=== PATIENT | male | born 1965 | race Caucasian/White ===

== ENCOUNTER 2020-05-21 09:50 | Emergency (ER) | payer BC, OTHER ==
[~2020-05-21] VITALS: Ht 180.3 cm; Wt 99.7 kg
--- NOTE | 2020-05-21 10:10 | NUR ---
Pt presents to ER calling prior with concern for mutiple sx of possible COVID concern. c/o lightheaded, sore throat, increased phglem production, chest tightness, diarrhea, decreased appetite r/t frequent diarrhea, and very fatiged for 4 days. Pt is diabetic. Pt has traveled in last 3 weeks to [place], [place], and motorcycle [employer] in [place]. Pt states he had 3 weeks ago went down into [place] not realizing of the COVID hotspot it is recognized for. Pt reports has went into [place] 2 weeks ago and around many other ppl. Pt states approximately 2 weeks ago he was in [place] with a [employer] gathering. Pt voices a major concern his exposures for possible COVID and his sx may be on the list and he has a 68 y/o with health concerns. Pt developed diarrhea about 4-5 days ago and has decreased appetite but has not been re-hydrating self as it attributes to making more diarrhea. Pt is feeling lightheaded today. For approx 3 days the patient feels chest tightness without any emergent feeling of thinking it was heart. "I am making alot more production of phlegm lately and alittle sore throat." Dr Villegas has entered at this time to complete his history and assessment and pt enters conversation with a different tone of voice stating, "If you do not intend on screening me for COVID, I will get right up and leave right now and go to a different hospital." "I am very concerned for my , whom is 68."
--- OUTSIDE RECORDS SUMMARY | 2020-05-21 10:19 | XMS REPORT | Continuity of Care Document ---
Author Organization Unknown Address Unknown Phone Unavailable Allergies There is no data. Medications There is no data. Problems There is no data. Procedures There is no data. Results There is no data. Encounters ACCT No. Visit Date/Time Discharge Status Pt. Type Provider Facility Loc./Unit Complaint [id number] 02/14/2019 18:00:00 02/14/2019 23:59: [facility] [id number] 05/21/2020 09:52:[address] Emergency [facility] ER FS SOB; CHEST CONGESTION; HEATHER COLEY
[2020-05-21] MEDS ORDERED: NS IV 1000 ML 1,000 ML ONE (10:22)
--- NOTE | 2020-05-21 10:24 | ED General ---
General Stated Complaint: SOB; CHEST CONGESTION; LETHARGY Source of Information: Patient Exam Limitations: No Limitations History of Present Illness Date Seen by Provider: May 21, 2020 Time Seen by Provider: 10:24 Initial Comments 54-year-old male presents with some chest tightness, congestion, fatigue. Patient reports he started feeling rough couple days ago. Has episode of diarrhea. Has some mild chest tightness and mild shortness of breath. Patient is complaining of some extreme fatigue. Patient states he is concerned that he may have COVID. Patient with no chest pain. No reports of fevers or chills. Allergies and Home Medications Allergies Coded Allergies: No Known Drug Allergies (Unverified , 05/21/20) Patient Home Medication List Home Medication List Reviewed: Yes Review of Systems Review of Systems Constitutional: No chills; dizziness; No fever; malaise EENTM: no symptoms reported; No throat pain Respiratory: No cough; short of breath, other (chest tightness) Cardiovascular: see HPI; No chest pain Gastrointestinal: diarrhea Genitourinary: no symptoms reported Musculoskeletal: no symptoms reported Skin: no symptoms reported Past Aulmwcm-Cbgmux-Vjquis Hx Past Med/Social Hx: Reviewed Nursing Past Med/Soc Hx Patient Social History Recent Foreign Travel: No Contact w/Someone Who Travel: No Physical Exam Vital Signs Vital Signs - First Documented 05/21/20 10:10 Temp 35.4 Pulse 87 Resp 20 B/P (MAP) 151/86 (107) O2 Delivery Room Air Capillary Refill : Height, Weight, BMI Height: '" Weight: lbs. oz. 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 Norm as Tested Skin: Normal Color, Warm/Dry Focused Exam Lactate Level 05/21/20 10:35: Lactic Acid Level 2.08*H Lactic Acid Level Laboratory Tests Test 05/21/20 10:35 Lactic Acid Level 2.08 MMOL/L (0.50-2.00) *H Progress/Results/Core Measures Suspected Sepsis SIRS Temperature: Pulse: Respiratory Rate: Laboratory Tests 05/21/20 10:35: White Blood Count 4.5 Blood Pressure / Mean: 05/21/20 10:35: Lactic Acid Level 2.08*H Laboratory Tests 05/21/20 10:35: Creatinine 0.84, INR Comment 1.0, Platelet Count 282, Total Bilirubin 0.8 Results/Orders Lab Results Laboratory Tests Test 05/21/20 10:35 05/21/20 10:45 Range/Units White Blood Count 4.5 4.3-11.0 10^3/uL Red Blood Count 5.16 4.35-5.85 10^6/uL Hemoglobin 15.6 13.3-17.7 G/DL Hematocrit 44 40-54 % Mean Corpuscular Volume 86 80-99 FL Mean Corpuscular Hemoglobin 30 25-34 PG Mean Corpuscular Hemoglobin Concent 35 32-36 G/DL Red Cell Distribution Width 12.1 10.0-14.5 % Platelet Count 282 130-400 10^3/uL Mean Platelet Volume 10.1 7.4-10.4 FL Neutrophils (%) (Auto) 47 42-75 % Lymphocytes (%) (Auto) 40 12-44 % Monocytes (%) (Auto) 9 0-12 % Eosinophils (%) (Auto) 2 0-10 % Basophils (%) (Auto) 3 0-10 % Neutrophils # (Auto) 2.1 1.8-7.8 X 10^3 Lymphocytes # (Auto) 1.8 1.0-4.0 X 10^3 Monocytes # (Auto) 0.4 0.0-1.0 X 10^3 Eosinophils # (Auto) 0.1 0.0-0.3 10^3/uL Basophils # (Auto) 0.1 0.0-0.1 10^3/uL Prothrombin Time 13.1 12.2-14.7 SEC INR Comment 1.0 0.8-1.4 Activated Partial Thromboplast Time 24 24-35 SEC Sodium Level 137 135-145 MMOL/L Potassium Level 4.1 3.6-5.0 MMOL/L Chloride Level 97 L 98-107 MMOL/L Carbon Dioxide Level 26 21-32 MMOL/L Anion Gap 14 5-14 MMOL/L Blood Urea Nitrogen 12 7-18 MG/DL Creatinine 0.84 0.60-1.30 MG/DL Estimat Glomerular Filtration Rate > 60 BUN/Creatinine Ratio 14 Glucose Level 267 H 70-105 MG/DL Lactic Acid Level 2.08 *H 0.50-2.00 MMOL/L Calcium Level 9.2 8.5-10.1 MG/DL Corrected Calcium 8.9 8.5-10.1 MG/DL Total Bilirubin 0.8 0.1-1.0 MG/DL Aspartate Amino Transf (AST/SGOT) 17 5-34 U/L Alanine Aminotransferase (ALT/SGPT) 33 0-55 U/L Alkaline Phosphatase 41 40-136 U/L Troponin I < 0.30 <0.30 NG/ML C-Reactive Protein 0.23 <0.50 MG/DL Total Protein 6.8 6.4-8.2 GM/DL Albumin 4.4 3.2-4.5 GM/DL My Orders Orders - BUCK,JESUS L DO Ns Iv 1000 Ml (Sodium Chloride 0.9%) (05/21/20 10:22) Vital Signs: Every 4 Hours (Or (05/21/20 10:24) Monitor-Rhythm Ecg Trace Only (05/21/20 10:24) Cbc With Automated Diff (05/21/20 10:24) Comprehensive Metabolic Panel (05/21/20 10:24) Ferritin (05/21/20 10:24) LDH (05/21/20 10:24) Hs C Reactive Protein (05/21/20 10:24) Crp Fs (05/21/20 10:24) Troponin I Fs (05/21/20 10:24) Lactic Acid Analyzer (05/21/20 10:24) Protime With Inr (05/21/20 10:24) Partial Thromboplastin Time (05/21/20 10:24) Fibrinogen (05/21/20 10:24) Ekg Tracing (05/21/20 10:24) Chest 1 View Ap/Pa Only (05/21/20 10:24) Coronavirus Sars-Cov-2 So 2018 (05/21/20 10:30) Ed Iv/Invasive Line Start (05/21/20 10:42) Ns Iv 1000 Ml (Sodium Chloride 0.9%) (05/21/20 10:42) Vital Signs/I&O 05/21/20 10:10 Temp 35.4 Pulse 87 Resp 20 B/P (MAP) 151/86 (107) O2 Delivery Room Air Capillary Refill : Progress Note : Time: 10:44 Progress Note while discussing evaluation plan with patient and explained to him all the tests and treatments we would be providing, Patient became very angry and stated that if I wasn't going to a COVID test he was given a get up right now leave and go to another hospital. I informed patient that at no time did I state I was not going to a COVID test but that there are multiple other etiologies it can cause his symptoms and some much more urgent than just COVID testing. I discussed with patient that if he just wants a COVID test he is free to go somewhere else if he chooses, but i would be doing that in addition to other tests, that he wants to be evaluated for his symptoms and other possible causes, we will continue to evaluate him. 1134 Patient with mild elevated lactate likely related to patient may in the nurse's that he hasn't been drinking a lot because he is got some diarrhea. He's also been out in the heat and and traveling quite a bit on his motorcycle. Patient with negative laboratory evaluation outside of minimal lactate evaluation. Patient with no acute findings on physical exam. ECG Initial ECG Impression Date: May 21, 2020 Initial ECG Impression Time: 10:28 Initial ECG Rate: 79 Initial ECG Rhythm: Normal Sinus Initial ECG Impression: Normal Diagnostic Imaging Diagonstic Imaging: Xray Comments [facility] [place], [place] NAME: ALMAZ ANDINO [facility] REC#: [id number] PT STATUS: REG ER : 1965 PHYSICIAN: JESUS BUCK DO ADMIT DATE: 05/21/20/ER FS Draft Date of Exam:05/21/20 CHEST 1 VIEW AP/PA ONLY Indication: Shortness of breath and chest congestion. Time of Exam: 10:53 AM No prior studies are available for comparison. The heart size is normal. The pulmonary vascularity is unremarkable. The lungs are clear. No infiltrate, effusion or pneumothorax is detected. Impression: No acute cardiopulmonary process is detected. Reviewed: Reviewed by Me Departure Impression Primary Impression: Dehydration Disposition: 01 HOME, SELF-CARE Condition: Stable Departure-Patient Inst. Referrals: NO,LOCAL PHYSICIAN (PCP/Family) Primary Care Physician Patient Instructions: COVID19, Dehydration, Adult (DC), Heat Exhaustion and Heat Stroke (DC) Add. Discharge Instructions: Your symptoms and laboratory evaluation could be mild dehydration from decreased fluid intake and he exposure, viral illness or other etiology. Your screen for the appiah virus. It will take approximately 72 hours for these results to return. He will need to follow CBC isolation guidelines for the next 14 days or until you have a negative test. JESUS BUCK DO May 21, 2020 10:24
[2020-05-21] MEDS ORDERED: NS IV 1000 ML 1,000 ML IV SCH (10:42)
[2020-05-21 10:53] LABS: BASOPHILS # (AUTO) 0.1 10^3/uL (0.0-0.1); BASOPHILS % (AUTO) 3 % (0-10); EOSINOPHILS # (AUTO) 0.1 10^3/uL (0.0-0.3); EOSINOPHILS % (AUTO) 2 % (0-10); HEMATOCRIT 44 % (40-54); HEMOGLOBIN 15.6 G/DL (13.3-17.7); LYMPHOCYTES # (AUTO) 1.8 X 10^3 (1.0-4.0); LYMPHOCYTES % (AUTO) 40 % (12-44); MEAN CORPUSCULAR HEMOGLOBIN 30 PG (25-34); MEAN CORPUSCULAR HGB CONC 35 G/DL (32-36); MEAN CORPUSCULAR VOLUME 86 FL (80-99); MEAN PLATELET VOLUME 10.1 FL (7.4-10.4); MONOCYTES # (AUTO) 0.4 X 10^3 (0.0-1.0); MONOCYTES % (AUTO) 9 % (0-12); NEUTROPHILS # (AUTO) 2.1 X 10^3 (1.8-7.8); NEUTROPHILS % (AUTO) 47 % (42-75); PLATELET COUNT 282 10^3/uL (130-400); RED CELL DISTRIBUTION WIDTH 12.1 % (10.0-14.5); WHITE BLOOD COUNT 4.5 10^3/uL (4.3-11.0)
--- NOTE | 2020-05-21 11:03 | Diagnostic Imaging Report ---
Indication: Shortness of breath and chest congestion. Time of Exam: 10:53 AM No prior studies are available for comparison. The heart size is normal. The pulmonary vascularity is unremarkable. The lungs are clear. No infiltrate, effusion or pneumothorax is detected. Impression: No acute cardiopulmonary process is detected. Dictated by: Dictated on workstation # [id number]
[2020-05-21 11:07] LABS: PROTHROMBIN TIME PATIENT 13.1 SEC (12.2-14.7)
--- NOTE | 2020-05-21 11:10 | NUR ---
IV fluid bolus is infused, results remain pending. Not all lab tests have resulted, pending PCXR. Pt aware of COVID is a send out.
[2020-05-21 11:15] LABS: ALANINE AMINOTRANSFERASE 33 U/L (0-55); ALKALINE PHOSPHATASE 41 U/L (40-136); BILIRUBIN,TOTAL 0.8 MG/DL (0.1-1.0); BUN/CREATININE RATIO 14; CALCIUM 9.2 MG/DL (8.5-10.1); CARBON DIOXIDE 26 MMOL/L (21-32); CHLORIDE 97 MMOL/L (98-107); CREATININE SERUM 0.84 MG/DL (0.60-1.30); GFR ESTIMATED > 60; GLUCOSE 267 MG/DL (70-105); POTASSIUM 4.1 MMOL/L (3.6-5.0); SODIUM 137 MMOL/L (135-145); TOTAL PROTEIN 6.8 GM/DL (6.4-8.2)
[2020-05-21 11:16] LABS: ALBUMIN 4.4 GM/DL (3.2-4.5)
[2020-05-21 12:05] VITALS: BP 141/83
--- NOTE | 2020-05-21 12:05 | NUR ---
Pt discharged to home via decon room doors of ED 5 as PUI. Pt was reviewed the orders of quarantine per Dr Villegas regarding his concerns for travel and his variety of sx. Pt will remain quarantined @ home till being notified of test results in which a positive requires more direction of his orders under the Public Health Dept disclosure for his further instructions.
== END 2020-05-21 12:05 | disposition home or self-care (01) ==
LOC: ER FS 09:52
DX: E86.0 Dehydration (principal); Z20.828 Contact with and (suspected) exposure to other viral communicable diseases
CPT/HCPCS: 36415; 71045; 80053; 82728; 83605; 83615; 84484; 85025; 85384; 85610; 85730; 86141; 93005; 93041; 99284; U0002; 87635

== ENCOUNTER 2021-12-10 10:59 | Emergency (ER) | payer BC ==
[~2021-12-10] VITALS: Ht 177.8 cm; Wt 99.3 kg
[2021-12-10] MEDS ORDERED: KETOROLAC 30 MG/ML VIAL IVP STA (11:14)
[2021-12-10] MEDS ORDERED: NS IV 1000 ML 1,000 ML IV STA (11:14)
--- NOTE | 2021-12-10 11:22 | ED Abdominal Pain ---
General Chief Complaint: Abdominal/GI Problems Stated Complaint: ABD PAIN Source of Information: Patient Exam Limitations: No Limitations History of Present Illness Date Seen by Provider: Dec 10, 2021 Time Seen by Provider: 11:03 Initial Comments 56-year-old male presenting with complaints of lower abdominal pain x4 days. Initially he felt like there was a "softball in my ass" when he tried to go to the bathroom. He was having decreased amounts of stool that he could get out. He was straining to pass any stool. He had seen some blood when he passed some stool last night. He had some increased cramping pain in the lower abdominal and suprapubic area after going to the bathroom. His pain has become more constant 6 out of 10 over the last 4 days. It is not made worse or better if he eats or drinks anything. He has not noticed any nausea or vomiting. He has worsened pain after trying to have a bowel movement or urinate. He does have a history of diabetes and high blood pressure as well as kidney stones and diverticulitis. He states that this feels different than his diverticulitis in the past. He has felt that he had a subjective fever yesterday but did not take his temperature. He denied any cough, congestion, chest pain, diarrhea, pain with urination, blood in his urine, trauma to his abdomen. He denies any history of abdominal surgeries. He has not tried taking any medications for the pain over the last 4 days. He does not routinely follow up with a clinic provider but will go to see a provider in [place] when he has to so that he can maintian medicines for his Diabetes. Timing/Duration: 4-5 Days Severity/Quality: Moderate, Cramping, Stabbing Location: RLQ, LLQ, Suprapubic Radiation: No Radiation Activities at Onset: None Modifying Factors: Worsens With Defecating (increased pain after he tries to defecate), Worsens With Movement, Worsens With Palpation Associated Symptoms: No Back Pain, No Chest Pain, No Diaphoresis; Fever/Chills (subjective fever yesterday as he felt "really hot" but did not actually take his temperature); No Fatigue, No Headache, No Heartburn, No Nausea/Vomiting, No Rash, No Shortness of Air, No Swelling/Mass in Abdomen, No Syncope, No Weakness Allergies and Home Medications Allergies Coded Allergies: No Known Drug Allergies (Unverified , 05/21/20) Patient Home Medication List Home Medication List Reviewed: Yes Ciprofloxacin HCl (Ciprofloxacin HCl) 500 Mg Tablet, 500 MG PO BID Prescribed by: FRANCIS THURMAN on 12/10/21 1321 Metronidazole (Metronidazole) 500 Mg Tablet, 500 MG PO TID Prescribed by: FRANCIS THURMAN on 12/10/21 1321 Oxycodone HCl/Acetaminophen (Oxycodone-Acetaminophen 5-325) 1 Each Tablet, 1 EACH PO Q4H PRN for PAIN-SEVERE (8-10) Prescribed by: FRANCIS THURMAN on 12/10/21 1322 Review of Systems Review of Systems Constitutional: No chills, No diaphoresis; fever (subjective yesterday) EENTM: No Symptoms Reported Respiratory: No Symptoms Reported Cardiovascular: No Symptoms Reported Gastrointestinal: See HPI Genitourinary: See HPI Musculoskeletal: no symptoms reported Skin: No rash Psychiatric/Neurological: Denies Headache Endocrine: Denies Increased Thrist, Denies Increased Urine Hematologic/Lymphatic: Denies Blood Clots Past Aomrtoh-Ifmxhi-Ggnijd Hx Patient Social History Tobacco Use?: No Seasonal Allergies Seasonal Allergies: No Past Medical History Surgery/Hospitalization HX: Diabetes Mellitus Non-Insulin Controlled, Htn, High Cholesterol, Kidney stones, Diverticulitis Surgeries: Yes (Colonoscopy, arthroscopy bilat shoulders, left knee) Respiratory: No Cardiac: Yes (states on HTN med for kidney protection) High Cholesterol, Hypertension Neurological: No Genitourinary: Yes Kidney Stones Gastrointestinal: Yes Diverticulosis (hx of prior diverticulitis) Musculoskeletal: No Endocrine: Yes Diabetes, Non-Insulin dep HEENT: No Cancer: No Psychosocial: Yes Anxiety, Depression Integumentary: No Blood Disorders: No Physical Exam Vital Signs Vital Signs - First Documented 12/10/21 11:05 Temp 36.1 Pulse 96 Resp 16 B/P (MAP) 152/85 (107) Pulse Ox 98 O2 Delivery Room Air Capillary Refill : Height/Weight/BMI Height: '" Weight: lbs. oz. kg; 30.00 BMI Method: General Appearance: WD/WN, no apparent distress HEENT: PERRL/EOMI, pharynx normal Neck: non-tender, full range of motion, supple, normal inspection Respiratory: chest non-tender, lungs clear, normal breath sounds, no respiratory distress, no accessory muscle use Cardiovascular: normal peripheral pulses, regular rate, rhythm Gastrointestinal: normal bowel sounds, soft, no pulsatile mass; No distended, No guarding, No rebound; tenderness (all across lower abdomen but worse in suprapubic area) Rectal: deferred Extremities: normal range of motion, non-tender, no calf tenderness, normal capillary refill Back: no CVA tenderness Neurologic/Psychiatric: hot box checker II-XII nml as tested, alert, oriented x 3 Skin: normal color, warm/dry Images 1 - Tender to palpation along lower abdomen, worse in suprapubic area Progress/Results/Core Measures Results/Orders Lab Results Laboratory Tests Test 12/10/21 11:10 Range/Units White Blood Count 10.8 4.3-11.0 10^3/uL Red Blood Count 5.14 4.30-5.52 10^6/uL Hemoglobin 15.8 13.3-17.7 g/dL Hematocrit 45 40-54 % Mean Corpuscular Volume 87 80-99 fL Mean Corpuscular Hemoglobin 31 25-34 pg Mean Corpuscular Hemoglobin Concent 35 32-36 g/dL Red Cell Distribution Width 12.3 10.0-14.5 % Platelet Count 309 130-400 10^3/uL Mean Platelet Volume 10.1 9.0-12.2 fL Immature Granulocyte % (Auto) 0 % Neutrophils (%) (Auto) 75 42-75 % Lymphocytes (%) (Auto) 14 12-44 % Monocytes (%) (Auto) 9 0-12 % Eosinophils (%) (Auto) 1 0-10 % Basophils (%) (Auto) 1 0-10 % Neutrophils # (Auto) 8.1 H 1.8-7.8 X 10^3 Lymphocytes # (Auto) 1.5 1.0-4.0 X 10^3 Monocytes # (Auto) 1.0 0.0-1.0 X 10^3 Eosinophils # (Auto) 0.1 0.0-0.3 10^3/uL Basophils # (Auto) 0.1 0.0-0.1 10^3/uL Immature Granulocyte # (Auto) 0.0 0.0-0.1 10^3/uL Prothrombin Time 13.2 12.2-14.7 SEC INR Comment 1.0 0.8-1.4 Activated Partial Thromboplast Time 24 24-35 SEC Sodium Level 138 135-145 MMOL/L Potassium Level 4.2 3.6-5.0 MMOL/L Chloride Level 100 98-107 MMOL/L Carbon Dioxide Level 27 21-32 MMOL/L Anion Gap 11 5-14 MMOL/L Blood Urea Nitrogen 12 7-18 MG/DL Creatinine 0.86 0.60-1.30 MG/DL Estimat Glomerular Filtration Rate 102 BUN/Creatinine Ratio 14 Glucose Level 250 H 70-105 MG/DL Calcium Level 9.2 8.5-10.1 MG/DL Corrected Calcium 8.8 8.5-10.1 MG/DL Total Bilirubin 1.0 0.1-1.0 MG/DL Aspartate Amino Transf (AST/SGOT) 10 5-34 U/L Alanine Aminotransferase (ALT/SGPT) 20 0-55 U/L Alkaline Phosphatase 48 40-136 U/L Total Protein 7.4 6.4-8.2 GM/DL Albumin 4.5 3.2-4.5 GM/DL Lipase 21 8-78 U/L My Orders Orders - FRANCIS THURMAN MD Comprehensive Metabolic Panel (12/10/21 11:14) Lipase (12/10/21 11:14) Ed Iv/Invasive Line Start (12/10/21 11:14) Cbc With Automated Diff (12/10/21 11:14) Ct Abdomen/Pelvis W (12/10/21 11:14) Ns Iv 1000 Ml (Sodium Chloride 0.9%) (12/10/21 11:14) Ketorolac Injection (Toradol Injection) (12/10/21 11:14) Protime With Inr (12/10/21 11:14) Partial Thromboplastin Time (12/10/21 11:14) Iohexol Injection (Omnipaque 350 Mg/Ml 1 (12/10/21 12:00) Received Contrast (Hold Metformin- Contr (12/10/21 12:00) Sodium Chloride Flush (Catheter Flush Sy (12/10/21 12:00) Ns (Ivpb) (Sodium Chloride 0.9% Ivpb Bag (12/10/21 12:00) Metronidazole 500mg/100ml Ivpb (Flagyl 5 (12/10/21 13:05) Ciprofloxacin Tablet (Cipro Tablet) (12/10/21 13:05) Fentanyl Inj (Sublimaze Injection) (12/10/21 13:05) Ondansetron Injection (Zofran Injectio (12/10/21 13:05) Medications Given in ED Current Medications Medications Dose Ordered Sig/Sharon Route Start Time Stop Time Status Last Admin Dose Admin Iohexol 100 ml ONCE ONCE IV 12/10/21 12:00 12/10/21 12:01 DC 12/10/21 12:03 100 ML Sodium Chloride 10 ml NEEDED PRN IV 12/10/21 12:00 12/10/21 14:29 DC 12/10/21 12:03 10 ML Sodium Chloride 100 ml ONCE ONCE IV 12/10/21 12:00 12/10/21 12:01 DC 12/10/21 12:03 100 ML Vital Signs/I&O 12/10/21 12/10/21 11:05 14:25 Temp 36.1 Pulse 96 78 Resp 16 16 B/P (MAP) 152/85 (107) 114/69 Pulse Ox 98 97 O2 Delivery Room Air Room Air Progress Progress Note #1: Progress Note Check basic labs, UA, Coags since he reports blood in stool. CT scan of abdomen/pelvis to evaluate his abdominal pain. Give IV contrast to look for signs of inflammation. IVF for hydration with his HR in upper 90s. Toradol for pain. Keep NPO until have further testing back Differential diagnosis includes fecal impaction, diverticulitis, colitis, bowel mass, kidney stone, UTI, Progress Note #2: Progress Note Labs are stable without elevation of the white blood cell count. His chemistry does not show acute significant abnormality other than elevated glucose of 250. His pain was not improved with treatment here in the ED. His CT scan did demonstrate a lot of inflammation around the lower sigmoid and rectal colon consistent with diverticulitis and colitis. No perforation or free air and no abscess. Advised patient of these findings and since he was still having pain we will give a first dose of IV antibiotic here. Try a little stronger pain medication as well. Patient states that usually he needs double dose or better of any pain medications to have any effect for him. Counseled on follow up and return precautions. Advised he may want to discuss with his primary about having a repeat colonoscopy or sigmoidoscopy once he has healed and recovered from his acute flare up. Will give first dose of antibiotics here to help kick start treatment for his diverticulitis. Continue by mouth. Give Fentanyl 100 mcg IV to try and help with pain while waiting on antibiotic to infuse. Send Percocet for pain to pharmacy since he reports having to take stronger dose of pain meds than other people to help control his symptoms. Diagnostic Imaging Diagonstic Imaging: CT Plain Films/CT/US/NM/MRI: abdomen, pelvis Comments [facility]. [place], [place] NAME: ALMAZ ANDINO [facility] REC#: [id number] PT STATUS: REG ER : 1965 PHYSICIAN: FRANCIS THURMAN MD ADMIT DATE: 12/10/21/ER FS Signed Date of Exam:12/10/21 CT ABDOMEN/PELVIS W PROCEDURE: CT abdomen and pelvis with contrast. TECHNIQUE: Multiple contiguous axial images were obtained through the abdomen and pelvis after administration of intravenous contrast. Auto Exposure Controls were utilized during the CT exam to meet ALARA standards for radiation dose reduction. All CT scans use one or more of the following dose optimizing techniques: automated exposure control, MA and/or KvP adjustment based on patient size and exam type or iterative reconstruction. INDICATION: Low abdominal pain and intermittent constipation. Densely calcified nodule in the left lower lobe is compatible with granuloma. There is mild low-density throughout the liver indicating steatosis without evidence of focal hepatic or splenic abnormality. A small amount of high-density material is seen in the dependent portion of the gallbladder lumen indicating gallstones. No pancreatic or adrenal gland abnormality is identified. There is good enhancement of the kidneys with questionable minimal right renal cortical cyst. Otherwise, the kidneys are unremarkable without evidence of hydronephrosis and there is no evidence of obstructive uropathy. There is extensive mural thickening at the level of the sigmoid colon with several diverticula present. There is also pericolonic edema and inflammation which extends to the dome of the urinary bladder. Bladder is otherwise unremarkable. There is no evidence of appendiceal region inflammation or fluid collection. IMPRESSION: Findings are compatible with sigmoid colitis likely on the basis of diverticulitis with pericolonic inflammation. There is no evidence of drainable abscess or pneumoperitoneum. Other incidental findings include hepatic steatosis, cholecystolithiasis and left lower lobe calcified granuloma. Dictated by: Dictated on workstation # [id number] Dict: 12/10/21 1214 Trans: 12/10/21 1244 [facility] [id number] Interpreted by: MACEY PEREZ MD Electronically signed by: MACEY PEREZ MD 12/10/21 1244 Reviewed: Reviewed by Me Departure Impression Primary Impression: Diverticulitis of sigmoid colon Disposition: HOME, SELF-CARE Condition: Stable Departure-Patient Inst. Decision time for Depature: 13:22 Referrals: NO,LOCAL PHYSICIAN (PCP/Family) Primary Care Physician Patient Instructions: Abdominal Pain, Adult ED, Diverticulitis (DC) Add. Discharge Instructions: Take the full course of antibiotics to treat for infection and inflammation of your Sigmoid and lower colon. Follow a liquid or bland diet for next 24-48 hours to help with pain and infla mmation. Check with clinic if not improving as they may want to repeat a colonoscopy once you are healed from this episode. Return or seek medical care if you develop fever over 101 F, uncontrolled vomiting, worsening pain despite medicine. If these develop you may need IV antibiotics or admit to a hospital. All discharge instructions reviewed with patient and/or family. Voiced understanding. Scripts Oxycodone HCl/Acetaminophen (Oxycodone-Acetaminophen 5-325) 1 Each Tablet 1 EACH PO Q4H PRN for PAIN-SEVERE (8-10) MDD 6 for 3 Days, #18 TAB 0 Refills Prov: FRANCIS THURMAN MD 12/10/21 Metronidazole (Metronidazole) 500 Mg Tablet 500 MG PO TID for Diverticulitis for 10 Days, #30 TAB 0 Refills Prov: FRANCIS THURMAN MD 12/10/21 Ciprofloxacin HCl (Ciprofloxacin HCl) 500 Mg Tablet 500 MG PO BID for Diverticulitis for 10 Days, #20 TAB 0 Refills Prov: FRANCIS THURMAN MD 12/10/21 FRANCIS THURMAN MD Dec 10, 2021 11:22
[2021-12-10 11:31] LABS: BASOPHILS % (AUTO) 1 % (0-10); EOSINOPHILS % (AUTO) 1 % (0-10); HEMATOCRIT 45 % (40-54); HEMOGLOBIN 15.8 g/dL (13.3-17.7); LYMPHOCYTES % (AUTO) 14 % (12-44); MEAN CORPUSCULAR HEMOGLOBIN 31 pg (25-34); MEAN CORPUSCULAR HGB CONC 35 g/dL (32-36); MEAN CORPUSCULAR VOLUME 87 fL (80-99); MEAN PLATELET VOLUME 10.1 fL (9.0-12.2); MONOCYTES % (AUTO) 9 % (0-12); NEUTROPHILS % (AUTO) 75 % (42-75); PLATELET COUNT 309 10^3/uL (130-400); WHITE BLOOD COUNT 10.8 10^3/uL (4.3-11.0)
[2021-12-10 11:32] LABS: BASOPHILS # (AUTO) 0.1 10^3/uL (0.0-0.1); EOSINOPHILS # (AUTO) 0.1 10^3/uL (0.0-0.3); LYMPHOCYTES # (AUTO) 1.5 X 10^3 (1.0-4.0); NEUTROPHILS # (AUTO) 8.1 X 10^3 (1.8-7.8)
[2021-12-10 11:40] LABS: PROTHROMBIN TIME PATIENT 13.2 SEC (12.2-14.7)
[2021-12-10 11:48] LABS: CALCIUM 9.2 MG/DL (8.5-10.1); CREATININE SERUM 0.86 MG/DL (0.60-1.30); POTASSIUM 4.2 MMOL/L (3.6-5.0); TOTAL PROTEIN 7.4 GM/DL (6.4-8.2)
[2021-12-10 11:49] LABS: ALBUMIN 4.5 GM/DL (3.2-4.5)
[2021-12-10] MEDS ORDERED: CATHETER FLUSH 10 ML SYR IV PRN (12:00)
[2021-12-10] MEDS ORDERED: HOLD METFORMIN - RECEIVED CONTRAST 20 ML VIAL IV SCH (12:00)
[2021-12-10] MEDS ORDERED: IOHEXOL 350 MG/ML 100 ML (OMNIPAQUE 350) VIAL IV ONE (12:00)
[2021-12-10] MEDS ORDERED: NS 100 ML (IVPB) BAG IV ONE (12:00)
--- NOTE | 2021-12-10 12:22 | Diagnostic Imaging Report ---
PROCEDURE: CT abdomen and pelvis with contrast. TECHNIQUE: Multiple contiguous axial images were obtained through the abdomen and pelvis after administration of intravenous contrast. Auto Exposure Controls were utilized during the CT exam to meet ALARA standards for radiation dose reduction. All CT scans use one or more of the following dose optimizing techniques: automated exposure control, MA and/or KvP adjustment based on patient size and exam type or iterative reconstruction. INDICATION: Low abdominal pain and intermittent constipation. Densely calcified nodule in the left lower lobe is compatible with granuloma. There is mild low-density throughout the liver indicating steatosis without evidence of focal hepatic or splenic abnormality. A small amount of high-density material is seen in the dependent portion of the gallbladder lumen indicating gallstones. No pancreatic or adrenal gland abnormality is identified. There is good enhancement of the kidneys with questionable minimal right renal cortical cyst. Otherwise, the kidneys are unremarkable without evidence of hydronephrosis and there is no evidence of obstructive uropathy. There is extensive mural thickening at the level of the sigmoid colon with several diverticula present. There is also pericolonic edema and inflammation which extends to the dome of the urinary bladder. Bladder is otherwise unremarkable. There is no evidence of appendiceal region inflammation or fluid collection. IMPRESSION: Findings are compatible with sigmoid colitis likely on the basis of diverticulitis with pericolonic inflammation. There is no evidence of drainable abscess or pneumoperitoneum. Other incidental findings include hepatic steatosis, cholecystolithiasis and left lower lobe calcified granuloma. Dictated by: Dictated on workstation # [id number]
[2021-12-10] MEDS ORDERED: ONDANSETRON 4 MG/2 ML (SDV) Z0FRAN IVP STA (13:05)
[2021-12-10] MEDS ORDERED: fentaNYL INJ 100 MCG/2 ML AMP IVP STA (13:05)
[2021-12-10] MEDS ORDERED: metroNIDAZOLE 500MG/100ML IVPB 100 ML IV STA (13:05)
[2021-12-10] MEDS ORDERED: CIPROFLOXACIN 500 MG (CIPRO) TABLET PO STA (13:05)
[2021-12-10] MEDS ORDERED: CIPR500T5 PO (13:21)
[2021-12-10] MEDS ORDERED: OXYC1TAB11 PO (13:21)
[2021-12-10] MEDS ORDERED: METR-145 PO (13:21)
[2021-12-10 14:25] VITALS: BP 114/69
== END 2021-12-10 14:25 | disposition home or self-care (01) ==
LOC: EDUNIT# 10:59 → ER FS 11:01
DX: K57.32 Diverticulitis of large intestine without perforation or abscess without bleeding (principal); I10 Essential (primary) hypertension; E11.9 Type 2 diabetes mellitus without complications
CPT/HCPCS: 36415; 74177; 80053; 83690; 85025; 85610; 85730